=== PATIENT | female | born 1935 | race Caucasian/White ===

== ENCOUNTER 2022-01-29 08:34 | Outpatient (CLI) | payer MEDICARE ==
[2022-01-29 10:14] LABS: #Eosinphils 0.1 10x3/uL (0.0-0.5); #Monocytes 0.5 10x3/uL (0.0-1.1); #Neutrophils 3.4 10x3/uL (1.5-8.4); %Basophils 0.7 % (0.0-2.0); %Eosinophils 1.9 % (0.0-6.0); %Lymphocytes 23.3 % (18.0-47.0); %Monocytes 9.5 % (0.0-10.0); Hemoglobin 12.8 g/dL (12.0-15.5); Mean Corpuscular HGB CONC 32.7 g/dL (32.0-36.0); Mean Corpuscular Hemoglobin 29.6 pg (27.0-33.0); Mean Corpuscular Volume 90.5 fl (81.6-98.3); Mean Platelet Volume 9.3 fl (7.4-10.4); Platelet Count 209 10x3/uL (150-450); RBC Distribution Width 13.2 % (11.5-14.5); Red Blood Cell (RBC) Count 4.32 10x6/uL (3.90-5.03); White Blood Cell (WBC) Count 5.4 10x3/uL (3.5-10.5)
[2022-01-29 10:26] LABS: INR-International Normal Ratio 0.9; Prothrombin Time 10.5 sec (9.5-12.1)
[2022-01-29 10:35] LABS: Anion Gap 14 mmol/L (10-20); BUN (Urea Nitrogen) 15 mg/dL (9.8-20.1); Calc. Creatinine Clearance 0 mL/min (70-130); Calcium 9.7 mg/dL (7.8-10.44); Carbon Dioxide 27 mmol/L (23-31); Chloride 104 mmol/L (98-107); Glucose 110 mg/dL (83-110); Sodium 141 mmol/L (136-145)
[2022-01-29 23:46] LABS: SARS-CoV-2 PCR by NAA Not Detected (NotDetected)
== END 2022-01-29 08:35 | disposition home or self-care (01) ==
LOC: LABBT 08:34
PROVIDERS: ATTEND Internal Medicine Cardiovascular Disease
DX: Z01.812 Encounter for preprocedural laboratory examination (principal); Z20.822 Contact with and (suspected) exposure to COVID-19
CPT/HCPCS: 80048; 85025; 85610; U0003; U0005

== ENCOUNTER 2023-06-20 18:43 | Inpatient (IN) | payer MEDICARE, MEDICAID ==
[~2023-06-20 18:43] MED LIST: Iopamidol-370 76% 500 ML MDV (1 ML CHARGE) ONE
[2023-06-20 19:29] LABS: Bacteria/HPF None Seen HPF (None Seen); Bilirubin Negative (Negative); Blood, Urine Negative (Negative); CAUTI Indications for Culture Alt mental st,lethar; Clarity Clear (Clear); Glucose, Urine (Dipstick) Normal (Negative); Ketone, Urine Negative (Negative); Leukocyte Negative Leu/uL (Negative); Nitrite Negative (Negative); Protein, Urine (Dipstick) Negative (Neg-Trace); RBC/HPF 0-3 HPF (0-3); Specific Gravity, Urine 1.014 (1.002-1.036); Squamous Epithelial None Seen HPF (0-3); Urobilinogen Normal mg/dL (Less than 2); WBC/HPF 0-3 HPF (0-3)
[2023-06-20 19:34] LABS: Urine Culture Reflex No No
[2023-06-20 19:47] LABS: #Eosinphils 0.1 thou/uL (0.0-0.7); #Monocytes 0.4 thou/uL (0.11-0.59); %Basophils 0.5 % (0.0-1.0); %Eosinophils 1.6 % (0.0-10.0); %Lymphocytes 21.8 % (21.0-51.0); %Monocytes 9.2 % (0.0-10.0); %Neutrophils 66.7 % (42.0-75.0); Hematocrit 36.5 % (36.0-47.0); Hemoglobin 12.4 g/dL (12.0-16.0); Mean Corpuscular Volume 91.3 fl (78.0-98.0); Platelet Count 149 10x3/uL (130-400); RBC Distribution Width 14.1 % (11.5-14.5); White Blood Cell (WBC) Count 4.4 10x3/uL (4.8-10.8)
[2023-06-20 20:00] LABS: Prothrombin Time 14.1 sec (12.0-14.7)
[2023-06-20 20:01] LABS: PTT 26.6 sec (22.9-36.1)
[2023-06-20 20:09] LABS: ALT (SGPT) 10 U/L (8-55); AST (SGOT) 19 U/L (5-34); Albumin 4.2 g/dL (3.4-4.8); Alkaline Phosphatase 52 U/L (40-110); Anion Gap 19 mmol/L (10-20); BUN (Urea Nitrogen) 19 mg/dL (9.8-20.1); Bilirubin, Total 0.6 mg/dL (0.2-1.2); CK (CPK) 60 U/L (29-168); Calc. Creatinine Clearance 0 mL/min (70-130); Calcium 8.9 mg/dL (7.8-10.44); Carbon Dioxide 22 mmol/L (23-31); Chloride 100 mmol/L (98-107); Estimated GFR 49; Globulin 2.9 g/dL (2.4-3.5); Glucose 129 mg/dL (83-110); Potassium 3.7 mmol/L (3.5-5.1); Protein, Total 7.1 g/dL (5.8-8.1); Sodium 137 mmol/L (136-145)
[2023-06-20] MEDS ORDERED: Ondansetron PF 4 MG/2 ML Vial IVP PRN (21:19)
[2023-06-20] MEDS ORDERED: Senokot S 8.6-50 MG TAB PO PRN (21:19)
[2023-06-20] MEDS ORDERED: Calcium Carbonate 500 MG ChewTAB PO PRN (21:19)
[2023-06-20] MEDS ORDERED: hydrALAZINE 20 MG/ML VIAL SLOW IVP PRN (21:19)
[2023-06-20] MEDS ORDERED: Ondansetron ODT 4 MG TAB PO PRN (21:19)
[2023-06-20] MEDS ORDERED: Albuterol 200 PUFF (6.7GM INHALER) INH PRN (21:22)
[2023-06-20] MEDS ORDERED: ALPRAZolam 0.25 MG TAB PO PRN (21:22)
[2023-06-20] MEDS ORDERED: Aspirin Chewable 81 MG TAB ONE (21:54)
[2023-06-21 05:21] LABS: #Monocytes 0.5 thou/uL (0.11-0.59); #Neutrophils 3.3 thou/uL (1.40-6.50); %Basophils 0.4 % (0.0-1.0); %Eosinophils 0.6 % (0.0-10.0); %Lymphocytes 26.5 % (21.0-51.0); %Monocytes 9.5 % (0.0-10.0); %Neutrophils 62.8 % (42.0-75.0); Hematocrit 33.8 % (36.0-47.0); Hemoglobin 11.2 g/dL (12.0-16.0); Mean Corpuscular HGB CONC 33.1 g/dL (32.0-36.0); Mean Corpuscular Hemoglobin 30.6 pg (27.0-31.0); Mean Corpuscular Volume 92.3 fl (78.0-98.0); Mean Platelet Volume 9.1 fL (7.4-10.4); Platelet Count 165 10x3/uL (130-400); Red Blood Cell (RBC) Count 3.66 mill/uL (4.20-5.40); White Blood Cell (WBC) Count 5.2 10x3/uL (4.8-10.8)
[2023-06-21 05:41] LABS: Anion Gap 11 mmol/L (10-20); BUN (Urea Nitrogen) 18 mg/dL (9.8-20.1); Calc. Creatinine Clearance 41 mL/min (70-130); Calcium 8.8 mg/dL (7.8-10.44); Carbon Dioxide 27 mmol/L (23-31); Chloride 100 mmol/L (98-107); Cholesterol 208 mg/dl (< 200 Desired); Estimated GFR 47; Glucose 105 mg/dL (83-110); HDL Cholesterol 70 mg/dL (>60 Neg Risk); LDL Cholesterol, Calculated 121 mg/dL; Sodium 134 mmol/L (136-145); Triglycerides 85 mg/dL (Less than 150)
[2023-06-21] MEDS: Furosemide 20 MG TAB PO SCH (09:20)
[2023-06-21] MEDS: Aspirin 81 mg Enteric Coated Tablet PO SCH (09:20)
[2023-06-21] MEDS: Losartan 25 MG TAB PO SCH ×2 (09:20→21:06)
[2023-06-21] MEDS: Sertraline 25 MG TAB PO SCH (09:20)
[2023-06-21] MEDS: Famotidine 20 MG TAB PO SCH (09:20)
[2023-06-21] MEDS: Famotidine/PF 20 mg/2ml Vial SLOW IVP SCH (09:22)
[2023-06-21] MEDS: Rosuvastatin 20 MG TAB PO SCH (21:07)
[2023-06-22 05:26] LABS: Anion Gap 12 mmol/L (10-20); BUN (Urea Nitrogen) 18 mg/dL (9.8-20.1); Calc. Creatinine Clearance 42 mL/min (70-130); Calcium 9.1 mg/dL (7.8-10.44); Carbon Dioxide 27 mmol/L (23-31); Chloride 103 mmol/L (98-107); Estimated GFR 48; Glucose 108 mg/dL (83-110); Potassium 3.9 mmol/L (3.5-5.1); Sodium 138 mmol/L (136-145)
[2023-06-22] MEDS: Aspirin 81 mg Enteric Coated Tablet PO SCH (09:29)
[2023-06-22] MEDS: Sertraline 25 MG TAB PO SCH (09:29)
[2023-06-22] MEDS: Famotidine/PF 20 mg/2ml Vial SLOW IVP SCH (09:30)
[2023-06-22] MEDS: Famotidine 20 MG TAB PO SCH (09:30)
[2023-06-22] MEDS: Furosemide 20 MG TAB PO SCH (09:30)
[2023-06-22] MEDS: Losartan 25 MG TAB PO SCH ×2 (09:30→21:15)
[2023-06-22] MEDS: Rosuvastatin 20 MG TAB PO SCH (21:15)
[2023-06-23] MEDS: Acetaminophen 325 MG TAB PO PRN ×2 (02:56→15:07)
[2023-06-23 03:56] LABS: Anion Gap 14 mmol/L (10-20); BUN (Urea Nitrogen) 20 mg/dL (9.8-20.1); Calc. Creatinine Clearance 49 mL/min (70-130); Calcium 9.4 mg/dL (7.8-10.44); Carbon Dioxide 24 mmol/L (23-31); Chloride 103 mmol/L (98-107); Estimated GFR 57; Glucose 108 mg/dL (83-110); Potassium 3.5 mmol/L (3.5-5.1); Sodium 137 mmol/L (136-145)
[2023-06-23 04:01] LABS: Troponin I 0.023 ng/mL (< 0.028)
[2023-06-23] MEDS ORDERED: Potassium Chloride 20 MEQ TAB PO SCH (08:45)
[2023-06-23] MEDS: Famotidine 20 MG TAB PO SCH (09:17)
[2023-06-23] MEDS: Sertraline 25 MG TAB PO SCH (09:17)
[2023-06-23] MEDS: Aspirin 81 mg Enteric Coated Tablet PO SCH (09:17)
[2023-06-23] MEDS: Losartan 25 MG TAB PO SCH (09:17)
[2023-06-23] MEDS: Furosemide 20 MG TAB PO SCH (09:18)
[2023-06-23] MEDS: Famotidine/PF 20 mg/2ml Vial SLOW IVP SCH (09:18)
[2023-06-23 16:44] VITALS: BP 134/69; TEMP 98.4
== END 2023-06-23 19:42 | DRG 69 ==
LOC: ERS 18:43 → 2SE 21:32
PROVIDERS: ADMIT Student in an Organized Health Care Education/Training Program; ATTEND Internal Medicine Geriatric Medicine
PROC: 4A10X4Z Monitoring of Central Nervous Electrical Activity, External Approach (ICD-10-PCS; principal; 2023-06-21)
DX: G45.9 Transient cerebral ischemic attack, unspecified (principal); I50.32 Chronic diastolic (congestive) heart failure; I25.10 Atherosclerotic heart disease of native coronary artery without angina pectoris; E78.5 Hyperlipidemia, unspecified; J45.909 Unspecified asthma, uncomplicated; F32.A Depression, unspecified; Z96.659 Presence of unspecified artificial knee joint; F41.9 Anxiety disorder, unspecified; K21.9 Gastro-esophageal reflux disease without esophagitis; N18.9 Chronic kidney disease, unspecified; Z88.5 Allergy status to narcotic agent; Z88.0 Allergy status to penicillin; Z88.7 Allergy status to serum and vaccine; Z79.51 Long term (current) use of inhaled steroids; Z79.82 Long term (current) use of aspirin; Z79.899 Other long term (current) drug therapy; Z90.49 Acquired absence of other specified parts of digestive tract; Z98.890 Other specified postprocedural states; Z95.1 Presence of aortocoronary bypass graft; Z90.710 Acquired absence of both cervix and uterus
CPT/HCPCS: 36415; 51701; 70450; 70496; 70498; 70551; 80048; 80053; 80061; 81001; 82550; 83735; 84484; 85025; 85610; 85730; 93005; 93010; 93306; 95712; 95819; 95957; J2405; Q9967

== ENCOUNTER 2023-06-25 14:36 | Inpatient (IN) | payer MEDICARE, MEDICAID ==
[2023-06-25 15:36] LABS: #Monocytes 0.6 thou/uL (0.11-0.59); #Neutrophils 3.7 thou/uL (1.40-6.50); %Basophils 0.2 % (0.0-1.0); %Eosinophils 0.7 % (0.0-10.0); %Lymphocytes 18.8 % (21.0-51.0); %Monocytes 11.5 % (0.0-10.0); %Neutrophils 68.4 % (42.0-75.0); Hematocrit 34.5 % (36.0-47.0); Hemoglobin 11.1 g/dL (12.0-16.0); Mean Corpuscular HGB CONC 32.2 g/dL (32.0-36.0); Mean Corpuscular Hemoglobin 30.6 pg (27.0-31.0); Mean Platelet Volume 8.9 fL (7.4-10.4); Platelet Count 168 10x3/uL (130-400); RBC Distribution Width 14.1 % (11.5-14.5); Red Blood Cell (RBC) Count 3.63 mill/uL (4.20-5.40); White Blood Cell (WBC) Count 5.4 10x3/uL (4.8-10.8)
[2023-06-25 16:06] LABS: ALT (SGPT) 10 U/L (8-55); AST (SGOT) 16 U/L (5-34); Albumin 3.5 g/dL (3.4-4.8); Alkaline Phosphatase 42 U/L (40-110); Anion Gap 14 mmol/L (10-20); BUN (Urea Nitrogen) 25 mg/dL (9.8-20.1); Bilirubin, Total 0.6 mg/dL (0.2-1.2); Calc. Creatinine Clearance 0 mL/min (70-130); Calcium 8.4 mg/dL (7.8-10.44); Carbon Dioxide 23 mmol/L (23-31); Chloride 103 mmol/L (98-107); Estimated GFR 44; Globulin 2.4 g/dL (2.4-3.5); Glucose 110 mg/dL (83-110); Potassium 4.1 mmol/L (3.5-5.1); Protein, Total 5.9 g/dL (5.8-8.1); Sodium 136 mmol/L (136-145)
[2023-06-25 16:08] LABS: Troponin I Less than 0.010 ng/mL (< 0.028)
[2023-06-25 18:12] LABS: Bilirubin Negative (Negative); Blood, Urine Negative (Negative); CAUTI Indications for Culture Alt mental st,lethar; Glucose, Urine (Dipstick) Normal (Negative); Ketone, Urine Negative (Negative); Leukocyte 500 Leu/uL (Negative); Nitrite Negative (Negative); Protein, Urine (Dipstick) Negative (Neg-Trace); RBC/HPF None Seen HPF (0-3); Specific Gravity, Urine 1.008 (1.002-1.036); Squamous Epithelial 0-3 HPF (0-3); Urobilinogen Normal mg/dL (Less than 2); WBC/HPF 21-50 HPF (0-3); pH, Urine 6.5 (5.0-9.0)
[2023-06-25 18:24] LABS: Clarity Slightly Cloudy (Clear)
[2023-06-25 18:25] LABS: Bacteria/HPF 3+ HPF (None Seen)
[2023-06-25 18:26] LABS: Urine Culture Reflex Yes Yes
[2023-06-25 18:45] LABS: Troponin I Less than 0.010 ng/mL (< 0.028)
[2023-06-25] MEDS ORDERED: Acetaminophen 650 MG Suppository PR PRN (20:33)
[2023-06-25] MEDS ORDERED: Ondansetron PF 4 MG/2 ML Vial IVP PRN (20:33)
[2023-06-25] MEDS ORDERED: Ondansetron ODT 4 MG TAB PO PRN (20:33)
[2023-06-25] MEDS ORDERED: Acetaminophen 325 MG TAB PO PRN (20:33)
[2023-06-25] MEDS: Sodium Chloride 0.9% 1,000 ML IV SCH (23:11)
[2023-06-25] MEDS ORDERED: busPIRone HCl 5 MG TAB PO SCH (23:59)
[2023-06-26 04:18] LABS: #Eosinphils 0.2 thou/uL (0.0-0.7); #Monocytes 0.7 thou/uL (0.11-0.59); #Neutrophils 3.8 thou/uL (1.40-6.50); %Basophils 0.5 % (0.0-1.0); %Eosinophils 3.2 % (0.0-10.0); %Lymphocytes 20.6 % (21.0-51.0); %Monocytes 12.2 % (0.0-10.0); Hematocrit 34.4 % (36.0-47.0); Hemoglobin 11.3 g/dL (12.0-16.0); Mean Corpuscular HGB CONC 32.8 g/dL (32.0-36.0); Mean Corpuscular Volume 94.5 fl (78.0-98.0); Platelet Count 159 10x3/uL (130-400); Red Blood Cell (RBC) Count 3.64 mill/uL (4.20-5.40)
[2023-06-26 04:44] LABS: Anion Gap 11 mmol/L (10-20); BUN (Urea Nitrogen) 20 mg/dL (9.8-20.1); Calc. Creatinine Clearance 40 mL/min (70-130); Calcium 8.9 mg/dL (7.8-10.44); Carbon Dioxide 25 mmol/L (23-31); Chloride 105 mmol/L (98-107); Estimated GFR 47; Glucose 108 mg/dL (83-110); Sodium 137 mmol/L (136-145)
[2023-06-26] MEDS: cefTRIAXone\\ROCEPHIN 1 GM in Sodium Chloride 0.9% 100 ML IVPB SCH (05:50)
[2023-06-26] MEDS: Sodium Chloride 0.9% 1,000 ML IV SCH (12:17)
[2023-06-26] MEDS: busPIRone HCl 5 MG TAB PO SCH (20:42)
[2023-06-27] MEDS: Sodium Chloride 0.9% 1,000 ML IV SCH ×2 (00:24→20:51)
[2023-06-27] MEDS: cefTRIAXone\\ROCEPHIN 1 GM in Sodium Chloride 0.9% 100 ML IVPB SCH (06:22)
[2023-06-27] MEDS: Sertraline 100 MG TAB PO SCH (10:52)
[2023-06-27] MEDS: Furosemide 20 MG TAB PO SCH (10:53)
[2023-06-27] MEDS: busPIRone HCl 5 MG TAB PO SCH ×2 (10:53→20:51)
[2023-06-27] MEDS: Losartan 25 MG TAB PO SCH (10:53)
[2023-06-27 13:28] VITALS: BMI 29.0
[2023-06-28] MEDS: cefTRIAXone\\ROCEPHIN 1 GM in Sodium Chloride 0.9% 100 ML IVPB SCH (05:03)
[2023-06-28] MEDS: Losartan 25 MG TAB PO SCH (08:09)
[2023-06-28] MEDS: busPIRone HCl 5 MG TAB PO SCH (08:09)
[2023-06-28] MEDS: Furosemide 20 MG TAB PO SCH (08:09)
[2023-06-28] MEDS: Sertraline 100 MG TAB PO SCH (08:09)
[2023-06-28] MEDS: Sodium Chloride 0.9% 1,000 ML IV SCH (10:54)
[2023-06-28 10:58] VITALS: BP 133/62
[2023-06-28 11:01] VITALS: TEMP 98.3
== END 2023-06-28 16:25 | DRG 690 ==
LOC: ERS 14:36 → 2NO 20:02 → OBSVTOIN 06-27 15:16
PROVIDERS: ADMIT Student in an Organized Health Care Education/Training Program; ATTEND Internal Medicine
DX: N39.0 Urinary tract infection, site not specified (principal); I69.351 Hemiplegia and hemiparesis following cerebral infarction affecting right dominant side; I50.32 Chronic diastolic (congestive) heart failure; I13.0 Hypertensive heart and chronic kidney disease with heart failure and stage 1 through stage 4 chronic kidney disease, or unspecified chronic kidney disease; I95.9 Hypotension, unspecified; K21.9 Gastro-esophageal reflux disease without esophagitis; J44.9 Chronic obstructive pulmonary disease, unspecified; I25.10 Atherosclerotic heart disease of native coronary artery without angina pectoris; I65.29 Occlusion and stenosis of unspecified carotid artery; R30.0 Dysuria; I35.0 Nonrheumatic aortic (valve) stenosis; N18.2 Chronic kidney disease, stage 2 (mild); E83.42 Hypomagnesemia; F41.9 Anxiety disorder, unspecified; F32.A Depression, unspecified; B95.7 Other staphylococcus as the cause of diseases classified elsewhere; M79.601 Pain in right arm; G47.33 Obstructive sleep apnea (adult) (pediatric); Z88.5 Allergy status to narcotic agent; Z88.0 Allergy status to penicillin; Z88.8 Allergy status to other drugs, medicaments and biological substances; Z79.82 Long term (current) use of aspirin; Z79.899 Other long term (current) drug therapy; Z90.49 Acquired absence of other specified parts of digestive tract; Z90.710 Acquired absence of both cervix and uterus; Z88.7 Allergy status to serum and vaccine; M54.12 Radiculopathy, cervical region; R07.89 Other chest pain
CPT/HCPCS: 36415; 51798; 71045; 72040; 80048; 80053; 81001; 84484; 85025; 87077; 87086; 87186; 93005; 94760; 96361; 96365; 96372; 96375; 96376; G0378; J0696; J0744; J1650; J3490; J7050

== ENCOUNTER 2023-10-17 01:21 | Inpatient (IN) | payer MEDICARE, MEDICAID ==
[2023-10-17 01:42] LABS: #Eosinphils 0.1 thou/uL (0.0-0.7); #Monocytes 0.6 thou/uL (0.11-0.59); #Neutrophils 2.9 thou/uL (1.40-6.50); %Basophils 0.4 % (0.0-1.0); %Eosinophils 2.2 % (0.0-10.0); %Lymphocytes 27.5 % (21.0-51.0); %Monocytes 11.6 % (0.0-10.0); %Neutrophils 58.1 % (42.0-75.0); Hematocrit 36.2 % (36.0-47.0); Hemoglobin 11.9 g/dL (12.0-16.0); Mean Corpuscular HGB CONC 32.9 g/dL (32.0-36.0); Mean Corpuscular Hemoglobin 32.2 pg (27.0-31.0); Mean Corpuscular Volume 98.1 fl (78.0-98.0); Mean Platelet Volume 8.9 fL (7.4-10.4); Platelet Count 169 10x3/uL (130-400); RBC Distribution Width 12.5 % (11.5-14.5); Red Blood Cell (RBC) Count 3.69 mill/uL (4.20-5.40); White Blood Cell (WBC) Count 4.9 10x3/uL (4.8-10.8)
[2023-10-17 02:01] LABS: Troponin I Less than 0.010 ng/mL (< 0.028)
[2023-10-17 02:09] LABS: ALT (SGPT) Less than 7 U/L (8-55); AST (SGOT) 16 U/L (5-34); Albumin 3.8 g/dL (3.4-4.8); Alkaline Phosphatase 43 U/L (40-110); Anion Gap 17 mmol/L (10-20); BUN (Urea Nitrogen) 25 mg/dL (9.8-20.1); Bilirubin, Total 0.6 mg/dL (0.2-1.2); CK (CPK) 39 U/L (29-168); Calc. Creatinine Clearance 0 mL/min (70-130); Calcium 9.1 mg/dL (7.8-10.44); Carbon Dioxide 24 mmol/L (23-31); Chloride 103 mmol/L (98-107); Estimated GFR 52; Globulin 3.1 g/dL (2.4-3.5); Glucose 108 mg/dL (83-110); Potassium 4.2 mmol/L (3.5-5.1); Protein, Total 6.9 g/dL (5.8-8.1); Sodium 140 mmol/L (136-145)
[2023-10-17 02:18] LABS: PTT 23.7 sec (22.9-36.1); Prothrombin Time 13.9 sec (12.0-14.7)
[2023-10-17] MEDS ORDERED: Acetaminophen 325 MG TAB PO PRN (03:23)
[2023-10-17] MEDS ORDERED: hydrALAZINE 20 MG/ML VIAL SLOW IVP PRN (03:23)
[2023-10-17] MEDS ORDERED: Ondansetron ODT 4 MG TAB PO PRN (03:23)
[2023-10-17] MEDS ORDERED: Albuterol 200 PUFF (6.7GM INHALER) INH PRN (03:28)
[2023-10-17 06:20] LABS: #Basophils 0.1 thou/uL (0.0-0.2); #Monocytes 0.5 thou/uL (0.11-0.59); #Neutrophils 2.8 thou/uL (1.40-6.50); %Basophils 1.1 % (0.0-1.0); %Eosinophils 0.8 % (0.0-10.0); %Lymphocytes 27.6 % (21.0-51.0); %Monocytes 10.3 % (0.0-10.0); %Neutrophils 59.8 % (42.0-75.0); Hematocrit 41.8 % (36.0-47.0); Hemoglobin 12.7 g/dL (12.0-16.0); Mean Corpuscular HGB CONC 30.4 g/dL (32.0-36.0); Mean Corpuscular Hemoglobin 31.9 pg (27.0-31.0); Mean Platelet Volume 8.7 fL (7.4-10.4); Platelet Count 166 10x3/uL (130-400); RBC Distribution Width 12.4 % (11.5-14.5); Red Blood Cell (RBC) Count 3.98 mill/uL (4.20-5.40); White Blood Cell (WBC) Count 4.8 10x3/uL (4.8-10.8)
[2023-10-17 06:54] LABS: Troponin I 0.014 ng/mL (< 0.028)
[2023-10-17 07:01] LABS: ALT (SGPT) Less than 7 U/L (8-55); AST (SGOT) 13 U/L (5-34); Alkaline Phosphatase 43 U/L (40-110); Anion Gap 16 mmol/L (10-20); BUN (Urea Nitrogen) 21 mg/dL (9.8-20.1); Bilirubin, Total 0.6 mg/dL (0.2-1.2); Calc. Creatinine Clearance 0 mL/min (70-130); Calcium 9.2 mg/dL (7.8-10.44); Carbon Dioxide 22 mmol/L (23-31); Cardiac Risk 2.5 (Less than 4.5); Chloride 103 mmol/L (98-107); Cholesterol 189 mg/dl (< 200 Desired); Estimated GFR 62; Globulin 2.7 g/dL (2.4-3.5); Glucose 112 mg/dL (83-110); HDL Cholesterol 77 mg/dL (>60 Neg Risk); LDL Cholesterol, Calculated 101 mg/dL; Potassium 4.2 mmol/L (3.5-5.1); Protein, Total 6.7 g/dL (5.8-8.1); Sodium 137 mmol/L (136-145); Triglycerides 56 mg/dL (Less than 150)
[2023-10-17 07:06] LABS: Troponin I 0.013 ng/mL (< 0.028)
[2023-10-17] MEDS ORDERED: Furosemide 20 MG TAB PO SCH (09:00)
[2023-10-17] MEDS ORDERED: Isosorbide Mononitrate 30 MG ER.TAB PO SCH (09:00)
[2023-10-17] MEDS ORDERED: Aspirin 81 mg Enteric Coated Tablet PO SCH (09:00)
[2023-10-17] MEDS ORDERED: Iopamidol 370 76% 100 ML VIAL ONE (09:21)
[2023-10-17] MEDS ORDERED: Famotidine 20 MG TAB ONE (09:23)
[2023-10-17] MEDS: Magnesium Oxide 250 MG TAB PO SCH (10:00)
[2023-10-17] MEDS: Sertraline 25 MG TAB PO SCH (10:00)
[2023-10-17] MEDS: Atorvastatin Calcium 40 MG TAB PO SCH (10:00)
[2023-10-17] MEDS: Ranolazine 500 MG ER.TAB PO SCH ×2 (10:00→21:52)
[2023-10-17] MEDS: Loratadine 10 MG TAB PO SCH (10:00)
[2023-10-17] MEDS: Multivit, Therapeutic 1 TAB PO SCH (10:00)
[2023-10-17] MEDS: Cyanocobalamin (Vitamin B-12) 1,000 MCG TAB PO SCH (10:00)
[2023-10-17] MEDS: busPIRone HCl 5 MG TAB PO SCH ×2 (10:00→21:53)
[2023-10-17] MEDS: Losartan 25 MG TAB PO SCH (10:00)
[2023-10-17] MEDS: Aspirin 81 mg Enteric Coated Tablet PO SCH (10:00)
[2023-10-17] MEDS ORDERED: Multivit, Therapeutic 1 TAB ONE (10:35)
[2023-10-17] MEDS ORDERED: Aspirin Chewable 81 MG TAB ONE (10:35)
[2023-10-17] MEDS ORDERED: Atorvastatin Calcium 40 MG TAB ONE (10:35)
[2023-10-17] MEDS ORDERED: Loratadine 10 MG TAB ONE (10:50)
[2023-10-17] MEDS ORDERED: Sertraline 25 MG TAB ONE (11:00)
[2023-10-17] MEDS ORDERED: Losartan 25 MG TAB ONE (11:00)
[2023-10-17 19:05] LABS: Bilirubin Negative (Negative); Blood, Urine Negative (Negative); Clarity Clear (Clear); Glucose, Urine (Dipstick) Normal (Negative); Ketone, Urine Negative (Negative); Leukocyte 250 Leu/uL (Negative); Nitrite Negative (Negative); Protein, Urine (Dipstick) Negative (Neg-Trace); RBC/HPF 0-3 HPF (0-3); Specific Gravity, Urine 1.023 (1.002-1.036); Squamous Epithelial 0-3 HPF (0-3); Urobilinogen Normal mg/dL (Less than 2)
[2023-10-17 19:07] LABS: Bacteria/HPF 1+ HPF (None Seen)
[2023-10-17] MEDS ORDERED: LevoFLOXacin 250 mg/D5W 250 MG in Premix 1 BAG IVPB SCH (20:00)
[2023-10-17] MEDS: Metoprolol Tartrate 25 MG TAB PO SCH (21:53)
[2023-10-18 04:35] LABS: #Eosinphils 0.1 thou/uL (0.0-0.7); #Monocytes 0.5 thou/uL (0.11-0.59); #Neutrophils 3.4 thou/uL (1.40-6.50); %Basophils 0.6 % (0.0-1.0); %Eosinophils 2.1 % (0.0-10.0); %Lymphocytes 22.4 % (21.0-51.0); %Monocytes 9.7 % (0.0-10.0); Hematocrit 36.1 % (36.0-47.0); Hemoglobin 11.8 g/dL (12.0-16.0); Mean Corpuscular HGB CONC 32.7 g/dL (32.0-36.0); Mean Corpuscular Hemoglobin 31.9 pg (27.0-31.0); Mean Platelet Volume 9.1 fL (7.4-10.4); Platelet Count 176 10x3/uL (130-400); RBC Distribution Width 12.6 % (11.5-14.5); White Blood Cell (WBC) Count 5.2 10x3/uL (4.8-10.8)
[2023-10-18 05:10] LABS: Anion Gap 13 mmol/L (10-20); BUN (Urea Nitrogen) 20 mg/dL (9.8-20.1); Calc. Creatinine Clearance 0 mL/min (70-130); Carbon Dioxide 25 mmol/L (23-31); Chloride 103 mmol/L (98-107); Estimated GFR 47; Glucose 99 mg/dL (83-110); Magnesium 1.8 mg/dL (1.6-2.6); Phosphorus 3.7 mg/dL (2.3-4.7); Potassium 4.1 mmol/L (3.5-5.1); Sodium 137 mmol/L (136-145)
[2023-10-18 05:13] LABS: Mean Corpuscular Volume 97.6 fl (78.0-98.0)
[2023-10-18 08:14] VITALS: TEMP 97.8
[2023-10-18] MEDS ORDERED: Saccharomyces boulardii 250 MG CAP PO SCH (09:00)
[2023-10-18 11:04] VITALS: BMI 29.8
[2023-10-18] MEDS: Atorvastatin Calcium 40 MG TAB PO SCH (11:04)
[2023-10-18] MEDS: Metoprolol Tartrate 25 MG TAB PO SCH (11:05)
[2023-10-18] MEDS: Ranolazine 500 MG ER.TAB PO SCH (11:05)
[2023-10-18] MEDS: Cyanocobalamin (Vitamin B-12) 1,000 MCG TAB PO SCH (11:05)
[2023-10-18] MEDS: Sertraline 25 MG TAB PO SCH (11:05)
[2023-10-18] MEDS: Aspirin 81 mg Enteric Coated Tablet PO SCH (11:05)
[2023-10-18] MEDS: Magnesium Oxide 250 MG TAB PO SCH (11:05)
[2023-10-18] MEDS: Losartan 25 MG TAB PO SCH (11:06)
[2023-10-18] MEDS: Multivit, Therapeutic 1 TAB PO SCH (11:06)
[2023-10-18] MEDS: busPIRone HCl 5 MG TAB PO SCH (11:06)
[2023-10-18 11:07] VITALS: BP 123/70
[2023-10-18] MEDS: Loratadine 10 MG TAB PO SCH (11:08)
[2023-10-19] MEDS ORDERED: LevoFLOXacin 250 MG TAB PO SCH (06:00)
== END 2023-10-18 17:29 | DRG 69 ==
LOC: ERS 01:21 → SUATTDRO 01:21 → ERHOLD 03:24 → 2SE 16:04
PROVIDERS: ADMIT Family Medicine; ATTEND Internal Medicine Critical Care Medicine
DX: G45.9 Transient cerebral ischemic attack, unspecified (principal); I13.0 Hypertensive heart and chronic kidney disease with heart failure and stage 1 through stage 4 chronic kidney disease, or unspecified chronic kidney disease; I69.351 Hemiplegia and hemiparesis following cerebral infarction affecting right dominant side; R82.81 Pyuria; I50.9 Heart failure, unspecified; N18.9 Chronic kidney disease, unspecified; J44.9 Chronic obstructive pulmonary disease, unspecified; R01.1 Cardiac murmur, unspecified; K21.9 Gastro-esophageal reflux disease without esophagitis; I69.322 Dysarthria following cerebral infarction; I69.398 Other sequelae of cerebral infarction; F32.9 Major depressive disorder, single episode, unspecified; F41.9 Anxiety disorder, unspecified; R42 Dizziness and giddiness
CPT/HCPCS: 36415; 36416; 70450; 70496; 70498; 70551; 71045; 80048; 80053; 80061; 81001; 82550; 83735; 84100; 84443; 84484; 85025; 85610; 85730; 87077; 87086; 87186; 93005; J1650; J1956; Q9967